=== PATIENT | male | born 2000 | race African-American/Black ===

== ENCOUNTER 2021-10-18 15:08 | Emergency (ER) | payer OTHER ==
[~2021-10-18] VITALS: Ht 190.5 cm; Wt 127.0 kg
[2021-10-18] MEDS ORDERED: ACETAMINOPHEN 325MG TABLET PO ONE (16:15)
[2021-10-18] MEDS ORDERED: CYCL25PO15 MT (19:26)
[2021-10-18] MEDS ORDERED: IBUP-2028 MT (19:26)
[2021-10-18] MEDS ORDERED: CYCLOBENZAPRINE 10MG TABLET PO ONE (19:30)
[2021-10-18 20:10] VITALS: BP 135/88
== END 2021-10-18 20:24 | disposition home or self-care (01) ==
LOC: ER 15:08
DX: M25.511 Pain in right shoulder (principal); G43.909 Migraine, unspecified, not intractable, without status migrainosus
CPT/HCPCS: 73030; 93005; 99283